=== PATIENT | female | born 1995 | race Caucasian/White ===

== ENCOUNTER 2016-11-12 16:36 | Emergency (ER) | payer OTHER ==
[~2016-11-12 16:36] MED LIST: ALBUTEROL17 G1 INH; ALBUTEROL17 G2; AMOXIL500 M1 PO; BACTRIM DS TABL1 TA1 PO; BIRTH CONTROL; CIPRO PO; CIPRO250 MG/5 M PO; FLAGYL250 M1; FLAGYL250 M1 PO; METHADONE PO; NABUMETONE PO; NO MEDICATIONS; PHENERGAN PO; PHENERGAN SUPP25 MG PR; PHENERGAN25 MG PO; PRILOSEC PO; REGLAN PO; RISPERIDONE PO; SKELAXIN PO; ZANTAC150 MG PO; ZOFRAN ODT4 MG SL
== END 2016-11-12 19:03 | disposition home or self-care (01) ==
LOC: SED 16:36
DX: L02.412 Cutaneous abscess of left axilla (principal); L03.112 Cellulitis of left axilla; Z23 Encounter for immunization
CPT/HCPCS: 10060; 90471; 90715; 99283

== ENCOUNTER 2016-11-14 19:40 | Emergency (ER) | payer OTHER | END 2016-11-14 20:04 | disposition home or self-care (01) | LOC: SED 19:40 | DX: Z48.00 Encounter for change or removal of nonsurgical wound dressing (principal); Z79.899 Other long term (current) drug therapy | CPT/HCPCS: 99281 ==

== ENCOUNTER 2017-01-22 22:11 | Emergency (ER) | payer OTHER ==
[2017-01-22] MEDS ORDERED: LEVAQUIN PO (23:05)
== END 2017-01-23 00:10 | disposition home or self-care (01) ==
LOC: SED 22:11
DX: K04.7 Periapical abscess without sinus (principal); F31.9 Bipolar disorder, unspecified; J45.909 Unspecified asthma, uncomplicated; F17.210 Nicotine dependence, cigarettes, uncomplicated; Z79.899 Other long term (current) drug therapy
CPT/HCPCS: 99283